=== PATIENT | male | born 1990 | race African-American/Black ===

== ENCOUNTER → 2016-06-23 | Outpatient (CLI) | payer SELFPAY ==
[~2016-06-23] MED LIST: Albuterol 0.083% 2.5 MG/3 ML Neb Soln NEB ONE; Albuterol 0.083% 2.5 MG/3 ML Neb Soln ONE
== END ==
LOC: MW.RT 08:17
PROVIDERS: ATTEND Family Medicine
DX: R05 Cough (principal); R06.02 Shortness of breath
CPT/HCPCS: 94060

== ENCOUNTER 2024-01-31 01:19 | Emergency (ER) | payer OTHER ==
[2024-01-31 02:31] VITALS: BP 107/68; PULSE 77
== END 2024-01-31 02:30 | disposition home or self-care (01) ==
LOC: MW.ED 01:19
DX: S62.316A Displaced fracture of base of fifth metacarpal bone, right hand, initial encounter for closed fracture (principal); Z75.8 Other problems related to medical facilities and other health care; W50.0XXA Accidental hit or strike by another person, initial encounter
CPT/HCPCS: 29125; 73130-26-RT; 73130-RT; 99283; 99283-25

== ENCOUNTER 2024-02-01 08:03 | Day surgery (SDC) | payer SELFPAY ==
[~2024-02-01 08:03] MED LIST changes: -Albuterol 0.083% 2.5 MG/3 ML Neb Soln NEB ONE; +Albuterol 0.083% 2.5 MG/3 ML Neb Soln NEB PRN; -Albuterol 0.083% 2.5 MG/3 ML Neb Soln ONE; +Dexamethasone 4 MG/ML 5 ML MDV ONE; +HYDROmorphone 1 MG/ML Syringe IVPUSH PRN; +Lidocaine 1% 5 ML VIAL ONE; +Metoclopramide 10 MG/2 ML SDV IVPUSH PRN; +Midazolam 1 MG/ML 2 ML SDV ONE; +Morphine 2 MG/ML SYRINGE IVPUSH PRN; +Naloxone 0.4 MG/ML SDV IVPUSH PRN; +Ondansetron 4 MG/2 ML SDV IVPUSH PRN; +Ondansetron 4 MG/2 ML SDV ONE; +Phenylephrine HCl In 0.9% NaCl 1 MG/10 ML Syringe IVPUSH PRN; +Propofol 200 MG/20 ML SDV ONE; +fentaNYL 100 MCG/2 ML SDV ONE; +fentaNYL 50 MCG/ML SDV IVPUSH PRN
[2024-02-01] MEDS: Lactated Ringers 1,000 ML IV SCH (08:28)
[2024-02-01] MEDS ORDERED: Ropivacaine 0.5% 5 MG/ML 30 ML SDV ONE (08:28)
[2024-02-01] MEDS ORDERED: Bacitracin Oint 28.35 GM Tube ONE (08:35)
[2024-02-01] MEDS ORDERED: Glycopyrrolate 0.2 MG/ML SDV ONE (08:56)
[2024-02-01] MEDS ORDERED: ceFAZolin 2 GM Vial ONE (08:58)
[2024-02-01] MEDS ORDERED: ceFAZolin 2 GM in Sodium Chloride 0.9% 50 ML IV ONE (09:00)
[2024-02-01 11:20] VITALS: PULSE 83
[2024-02-01 12:58] VITALS: BP 126/80
== END 2024-02-01 12:35 | disposition home or self-care (01) ==
LOC: MW.SDS 08:03
PROVIDERS: ATTEND Orthopaedic Surgery
DX: S62.211A Bennett's fracture, right hand, initial encounter for closed fracture (principal); Y93.71 Activity, boxing
CPT/HCPCS: 26650; 64999; 76000; A9270; J0131; J0690; J1100; J1596; J2250; J2704; J2795; J3010; J7120; J2405; J3490

== ENCOUNTER 2024-03-13 08:02 | Day surgery (SDC) | payer OTHER ==
[~2024-03-13 08:02] MED LIST changes: -Dexamethasone 4 MG/ML 5 ML MDV ONE; -Lidocaine 1% 5 ML VIAL ONE; -Midazolam 1 MG/ML 2 ML SDV ONE; -Ondansetron 4 MG/2 ML SDV ONE; -Propofol 200 MG/20 ML SDV ONE; +ceFAZolin 2 GM in Sodium Chloride 0.9% 50 ML IV ONE; -fentaNYL 100 MCG/2 ML SDV ONE
[2024-03-13] MEDS: Lactated Ringers 1,000 ML IV SCH (08:44)
[2024-03-13] MEDS ORDERED: Propofol 200 MG/20 ML SDV ONE ×2 (09:09→10:15)
[2024-03-13] MEDS ORDERED: Midazolam 1 MG/ML 2 ML SDV ONE (09:10)
[2024-03-13] MEDS ORDERED: HYDROmorphone 1 MG/ML Syringe ONE (09:10)
[2024-03-13] MEDS ORDERED: ceFAZolin 2 GM Vial ONE (10:07)
[2024-03-13] MEDS ORDERED: Ketorolac 30 MG/ML SDV ONE (10:29)
[2024-03-13 11:12] VITALS: BP 119/66; PULSE 76
== END 2024-03-13 12:25 | disposition home or self-care (01) ==
LOC: MW.SDS 08:02
PROVIDERS: ATTEND Orthopaedic Surgery
DX: S62.211A Bennett's fracture, right hand, initial encounter for closed fracture (principal); J45.909 Unspecified asthma, uncomplicated; X58.XXXA Exposure to other specified factors, initial encounter
CPT/HCPCS: 20670; 76000; J0131; J0690; J1171; J1885; J2250; J2704; J7120; 01830

== ENCOUNTER 2024-05-13 09:16 | Emergency (ER) | payer OTHER ==
[2024-05-13] MEDS: Sodium Chloride 0.9% 1,000 ML IV SCH ×2 (10:15→11:31)
[2024-05-13] MEDS: Sodium Chloride 0.9% 10 ML Syringe FLUSH PRN (10:15)
[2024-05-13] MEDS ORDERED: Sodium Chloride 0.9% 1,000 ML IV SCH (10:15)
[2024-05-13 10:20] LABS: BASOPHILS ABSOLUTE AUTO 0.04 K/uL (0.00-0.20); BASOPHILS PERCENT AUTO 0.4 % (0.0-1.0); EOSINOPHILS ABSOLUTE AUTO 0.02 K/uL (0.00-0.45); EOSINOPHILS PERCENT AUTO 0.2 % (0.0-6.0); HEMATOCRIT 38.1 % (42.0-52.0); HEMOGLOBIN 12.8 g/dL (14.0-18.0); IMMATURE GRAN ABSOLUTE AUTO 0.03 K/uL (0.00-0.05); IMMATURE GRAN PERCENT AUTO 0.3 % (0.0-0.4); LYMPHOCYTES ABSOLUTE AUTO 1.28 K/uL (1.00-4.80); LYMPHOCYTES PERCENT AUTO 12.9 % (24.0-44.0); MEAN CORPUSCULAR HEMOGLOBIN 25.6 pg (28.0-32.0); MEAN CORPUSCULAR HGB CONC 33.6 g/dL (32.0-36.0); MEAN CORPUSCULAR VOLUME 76.2 fL (83.0-99.0); MEAN PLATELET VOLUME 10.7 fL (9.4-12.4); MONOCYTES ABSOLUTE AUTO 1.04 K/uL (0.00-0.80); MONOCYTES PERCENT AUTO 10.5 % (0.0-8.0); NEUTROPHILS ABSOLUTE AUTO 7.51 K/uL (1.80-7.70); NEUTROPHILS PERCENT AUTO 75.7 % (41.0-71.0); PLATELET COUNT,PLT 278 K/uL (150-400); WHITE BLOOD CELL COUNT,WBC 9.92 K/uL (3.9-11.3)
[2024-05-13 11:01] LABS: A/G RATIO 1.1 (0.9-1.6); ALBUMIN 3.8 g/dL (3.4-5.0); BILIRUBIN TOTAL 0.5 mg/dL (0.2-1.0); CALCIUM 9.1 mg/dL (8.5-10.1); CARBON DIOXIDE,CO2 28.1 mmol/L (21.0-32.0); CREATININE 1.2 mg/dL (0.8-1.3); EST CRCL DRUG DOSING (CG) 91.51 mL/min; POTASSIUM,K 3.7 mmol/L (3.5-5.1); PROTEIN TOTAL,TP 7.3 g/dL (6.4-8.2)
[2024-05-13] MEDS: Lactated Ringers 1,000 ML IV ONE (13:24)
[2024-05-13] MEDS: Penicillin V Potassium 500 MG Tab PO ONE (14:40)
[2024-05-13 15:04] VITALS: BP 135/73; PULSE 87
== END 2024-05-13 15:04 | disposition home or self-care (01) ==
LOC: MW.ED 09:16
DX: R55 Syncope and collapse (principal); J02.0 Streptococcal pharyngitis; Z79.899 Other long term (current) drug therapy
CPT/HCPCS: 36415; 71045; 80053; 83735; 85025; 87428; 87651; 93005; 96360; 96361; 99284; A9270; J7030; J7120; 93010

== ENCOUNTER 2024-11-05 17:35 | Emergency (ER) | payer SELFPAY ==
[2024-11-05 18:28] LABS: BASOPHILS ABSOLUTE AUTO 0.04 K/uL (0.00-0.20); BASOPHILS PERCENT AUTO 0.9 % (0.0-1.0); EOSINOPHILS ABSOLUTE AUTO 0.08 K/uL (0.00-0.45); EOSINOPHILS PERCENT AUTO 1.8 % (0.0-6.0); IMMATURE GRAN ABSOLUTE AUTO 0.01 K/uL (0.00-0.05); IMMATURE GRAN PERCENT AUTO 0.2 % (0.0-0.4); LYMPHOCYTES ABSOLUTE AUTO 1.82 K/uL (1.00-4.80); LYMPHOCYTES PERCENT AUTO 40.1 % (24.0-44.0); MEAN PLATELET VOLUME 10.8 fL (9.4-12.4); MONOCYTES ABSOLUTE AUTO 0.51 K/uL (0.00-0.80); MONOCYTES PERCENT AUTO 11.2 % (0.0-8.0); NEUTROPHILS ABSOLUTE AUTO 2.08 K/uL (1.80-7.70); NEUTROPHILS PERCENT AUTO 45.8 % (41.0-71.0); NRBC ABSOLUTE 0.00 K/uL (0.00-0.02); NRBC PERCENT 0.0 /100WBC (0.0-0.2); PLATELET COUNT,PLT 244 K/uL (150-400); RED BLOOD CELL COUNT 5.68 M/uL (4.52-5.90); WHITE BLOOD CELL COUNT,WBC 4.54 K/uL (3.9-11.3)
[2024-11-05 19:00] LABS: INR 1.02 (0.86-1.11)
[2024-11-05 19:15] LABS: A/G RATIO 0.9 (0.9-1.6); ALANINE AMINOTRANSFERASE,ALT 16.0 IU/L (14-63); ASPARTATE AMNIOTRANSFERASE,AST 25.0 IU/L (15-37); BILIRUBIN TOTAL 0.7 mg/dL (0.2-1.0); BLOOD UREA NITROGEN,BUN 11.0 mg/dL (7.0-18.0); CARBON DIOXIDE,CO2 29.0 mmol/L (21.0-32.0); CHLORIDE,CL 106.0 mmol/L (98-107); CREATININE 1.1 mg/dL (0.8-1.3); EST CRCL DRUG DOSING (CG) 98.88 mL/min; GLUCOSE RANDOM 77.0 mg/dL (74-106); POTASSIUM,K 4.0 mmol/L (3.5-5.1); PRO B-TYPE NATRIUR PEPT,BNPPRO 15.0 pg/mL (0-125); PROTEIN TOTAL,TP 7.7 g/dL (6.4-8.2); SODIUM,NA 143.0 mmol/L (136-148)
[2024-11-05 19:17] LABS: ESTIMATED GFR 89.0 mL/min (>60)
[2024-11-05 19:55] LABS: APPEARANCE,URINE CLEAR; GLUCOSE,URINE NEGATIVE (NEGATIVE); OCCULT BLOOD,URINE NEGATIVE (NEGATIVE)
[2024-11-05 20:04] LABS: AMPHETAMINES SCREEN, URINE NEGATIVE (CUTOFF=500); BUPRENORPHINE SCREEN,URINE NEGATIVE (CUTOFF=10); METHADONE SCREEN, URINE NEGATIVE (CUTOFF=200); METHAMPHETAMINES SCREEN, URINE NEGATIVE (CUTOFF=500); OXYCODONE SCREEN,URINE NEGATIVE (CUT0FF=100); PCP SCREEN,URINE NEGATIVE (CUTOFF=25); THC SCREEN,URINE 20 NG/ML NEGATIVE (CUTOFF=50)
[2024-11-05 21:09] VITALS: PULSE 63
[2024-11-05 23:12] VITALS: BP 104/50
== END 2024-11-05 23:11 | disposition home or self-care (01) ==
LOC: MW.ED 17:35
DX: R55 Syncope and collapse (principal); E66.9 Obesity, unspecified; Z95.5 Presence of coronary angioplasty implant and graft; Z68.31 Body mass index [BMI] 31.0-31.9, adult
CPT/HCPCS: 36415; 70450; 70450-26; 71046; 71046-26; 80053; 80305; 81003; 83735; 83880; 84484; 85025; 85610; 93005; 93010; 99283; 99284